=== PATIENT | female | born 1940 | race Caucasian/White ===

== ENCOUNTER 2018-01-28 17:53 | Inpatient (IN) | payer MEDICARE, MEDICAID ==
[~2018-01-28] VITALS: Ht 154.9 cm; Wt 45.8 kg
[~2018-01-28 17:53] MED LIST: ALLO100T PO; COLC0.6T51 PO; GLIP5TAB13 PO; NORCO5 PO; PANT40TA4 PO; SYN75 PO; VALS1TAB40 PO
[2018-01-28 17:58] VITALS: BP_SYST 109
[2018-01-28 18:36] LABS: BASOPHILS % (AUTO) 0.7 % (0.0-2.0); EOSINOPHILS % (AUTO) 0.4 % (0.0-4.0); HEMATOCRIT 22.5 % (36-48); HEMOGLOBIN 7.3 g/dL (12.0-16.0); LYMPHOCYTES # (AUTO) 1.2 K/uL (1.0-5.5); LYMPHOCYTES % (AUTO) 17.3 % (20.5-51.5); MEAN CORPUSCULAR HEMOGLOBIN 28 pg (27-31); MEAN CORPUSCULAR HGB CONC 32 % (32-36); MEAN CORPUSCULAR VOLUME 86 fL (79.0-98.0); MONOCYTES # (AUTO) 0.5 K/uL (0.0-1.0); MONOCYTES % (AUTO) 7.3 % (1.7-9.3); NEUTROPHILS # (AUTO) 5.2 K/uL (1.8-7.7); NEUTROPHILS % (AUTO) 74.3 % (40.0-70.0); PLATELET COUNT (AUTO) 209 K/uL (130-430); RED BLOOD CELL COUNT(AUTO) 2.61 MIL/uL (4.2-6.2); RED CELL DISTRIBUTION WIDTH 16.6 % (9.0-15.0); WHITE BLOOD COUNT (AUTO) 6.9 K/uL (4.8-10.8)
[2018-01-28 18:50] LABS: ANION GAP 9 (5-15); CALCIUM 8.5 mg/dL (8.4-11.0); CHLORIDE 103 mmol/L (98-107); CREATININE 0.78 mg/dL (0.55-1.30); GLUCOSE 117 mg/dL (70-99); POTASSIUM 4.2 mmol/L (3.5-5.1); SODIUM SERUM 134 mmol/L (136-145); UREA NITROGEN, BLOOD 14 mg/dL (8-21)
[2018-01-28] MEDS ORDERED: GABA-529 PO (18:53)
[2018-01-28] MEDS ORDERED: LINA5TAB2 PO (18:53)
[2018-01-28] MEDS ORDERED: AZEL137S7 (18:53)
[2018-01-28] MEDS ORDERED: CILO100T PO (18:53)
[2018-01-28] MEDS ORDERED: LEVO75TA7 PO (18:53)
[2018-01-28] MEDS ORDERED: GLIM4TAB PO (18:53)
[2018-01-28] MEDS ORDERED: ALPR0.25 PO (18:53)
[2018-01-28] MEDS ORDERED: TRIA15CR3 TP (18:53)
[2018-01-28] MEDS ORDERED: LOSA50TA3 PO (18:53)
[2018-01-28] MEDS ORDERED: LIPA1CAP23 PO (18:53)
[2018-01-28] MEDS ORDERED: FER300L PO (18:53)
[2018-01-28] MEDS ORDERED: ASPI-1155 PO (18:53)
[2018-01-28] MEDS ORDERED: CLOP75TA32 PO (18:53)
[2018-01-28] MEDS ORDERED: ERGO500020 PO (18:53)
[2018-01-28] MEDS ORDERED: FOLI-43 PO (18:53)
[2018-01-28] MEDS ORDERED: FAMO40TA7 PO (18:53)
[2018-01-28 18:55] LABS: ALANINE AMINOTRANSFERASE 38 U/L (12-78); ALBUMIN 2.7 g/dL (3.4-4.8); ASPARTATE AMINOTRANSFERASE 29 U/L (10-37); TOTAL BILIRUBIN 0.3 mg/dL (0.0-1.0)
[2018-01-28 20:50] VITALS: BP_SYST 122
[2018-01-28 23:56] VITALS: BP_SYST 110
[2018-01-29 02:55] VITALS: BP_SYST 102
[2018-01-29] MEDS ORDERED: DEXTROSE 50% JECT 50 ML DISP.SYRIN IVP PRN (07:30)
[2018-01-29 07:45] VITALS: BP_SYST 128
[2018-01-29] MEDS ORDERED: LEVOTHYROXINE SODIUM 0.075 MG TABLET PO ONE (08:00)
[2018-01-29 08:50] LABS: BASOPHILS # (AUTO) 0.1 K/uL (0.0-0.2); BASOPHILS % (AUTO) 1.2 % (0.0-2.0); EOSINOPHILS % (AUTO) 0.6 % (0.0-4.0); HEMATOCRIT 26.1 % (36-48); HEMOGLOBIN 8.4 g/dL (12.0-16.0); LYMPHOCYTES # (AUTO) 0.8 K/uL (1.0-5.5); LYMPHOCYTES % (AUTO) 14.9 % (20.5-51.5); MEAN CORPUSCULAR HEMOGLOBIN 29 pg (27-31); MEAN CORPUSCULAR HGB CONC 32 % (32-36); MEAN CORPUSCULAR VOLUME 89 fL (79.0-98.0); MONOCYTES # (AUTO) 0.5 K/uL (0.0-1.0); MONOCYTES % (AUTO) 8.8 % (1.7-9.3); NEUTROPHILS # (AUTO) 4.1 K/uL (1.8-7.7); NEUTROPHILS % (AUTO) 74.5 % (40.0-70.0); PLATELET COUNT (AUTO) 170 K/uL (130-430); RED BLOOD CELL COUNT(AUTO) 2.94 MIL/uL (4.2-6.2); RED CELL DISTRIBUTION WIDTH 15.4 % (9.0-15.0); WHITE BLOOD COUNT (AUTO) 5.5 K/uL (4.8-10.8)
[2018-01-29 08:55] LABS: ANION GAP 7 (5-15); CALCIUM 7.8 mg/dL (8.4-11.0); CHLORIDE 106 mmol/L (98-107); CREATININE 0.76 mg/dL (0.55-1.30); GLUCOSE 130 mg/dL (70-99); POTASSIUM 4.2 mmol/L (3.5-5.1); SODIUM SERUM 134 mmol/L (136-145); UREA NITROGEN, BLOOD 15 mg/dL (8-21)
[2018-01-29] MEDS ORDERED: VALSARTAN PO SCH (09:00)
[2018-01-29] MEDS ORDERED: [UNRECOGNIZED DRUG - OTHER] PO SCH (09:00)
[2018-01-29] MEDS ORDERED: HYDROCHLOROTHIAZIDE PO SCH (09:00)
[2018-01-29 09:01] LABS: ALANINE AMINOTRANSFERASE 30 U/L (12-78); ALBUMIN 2.3 g/dL (3.4-4.8); ASPARTATE AMINOTRANSFERASE 30 U/L (10-37); TOTAL BILIRUBIN 0.8 mg/dL (0.0-1.0)
[2018-01-29] MEDS: ONDANSETRON HCL 4 MG/2 ML VIAL IVP PRN ×2 (09:20→16:14)
[2018-01-29] MEDS: PANTOPRAZOLE SODIUM 40 MG/VIAL (PROTONIX) IVP SCH ×2 (09:27→21:05)
[2018-01-29] MEDS: HYDROCHLOROTHIAZIDE 12.5 MG CAPSULE (HCTZ) PO SCH (09:28)
[2018-01-29] MEDS: VALSARTAN 160 MG TABLET (DIOVAN) PO SCH (09:28)
[2018-01-29] MEDS: LOSARTAN POTASSIUM 50 MG TABLET (COZAAR) PO SCH (09:29)
[2018-01-29 12:29] VITALS: BP_SYST 105
[2018-01-29 16:27] VITALS: BP_SYST 99
[2018-01-29 19:40] VITALS: BP_SYST 106
[2018-01-30 00:35] VITALS: BP_SYST 118
[2018-01-30 02:10] LABS: TOTAL IRON BIND. CAPACITY 281 ug/dL (250-450)
[2018-01-30 02:19] LABS: THYROID STIMULATING HORMONE 8.17 uIu/mL (0.34-4.82)
[2018-01-30] MEDS: LEVOTHYROXINE SODIUM 0.075 MG TABLET PO SCH (06:00)
[2018-01-30] MEDS ORDERED: SIMETHICONE 40 MG/0.6 ML ML ONE (07:10)
[2018-01-30] MEDS: MIDAZOLAM HCL 5 MG/5 ML VIAL ONE ×2 (08:00→08:04)
[2018-01-30] MEDS: MEPERIDINE HCL/PF 100 MG/ML AMP ONE ×2 (08:02→08:06)
[2018-01-30] MEDS ORDERED: METOCLOPRAMIDE HCL 10 MG/2 ML VIAL IVP ONE (08:30)
[2018-01-30] MEDS: HYDROCHLOROTHIAZIDE 12.5 MG CAPSULE (HCTZ) PO SCH (09:00)
[2018-01-30] MEDS: VALSARTAN 160 MG TABLET (DIOVAN) PO SCH (09:00)
[2018-01-30] MEDS: LOSARTAN POTASSIUM 50 MG TABLET (COZAAR) PO SCH (09:00)
[2018-01-30 09:12] VITALS: BP_SYST 96
[2018-01-30] MEDS: PANTOPRAZOLE SODIUM 40 MG/VIAL (PROTONIX) IVP SCH ×2 (09:29→21:50)
[2018-01-30] MEDS ORDERED: DIATR MEGLU/DIATRIZ SOD 30 ML SOLUTION PO ONE (09:33)
[2018-01-30] MEDS: METOCLOPRAMIDE HCL 10 MG/2 ML VIAL IVP SCH ×2 (11:14→17:32)
[2018-01-30] MEDS ORDERED: IOHEXOL 100 ML IV ONE (12:16)
[2018-01-30 14:39] VITALS: BP_SYST 111
[2018-01-30 16:08] VITALS: BP_SYST 101
[2018-01-30] MEDS ORDERED: LEVOFLOXACIN 500 MG/D5W 100 ML IV ONE (17:00)
[2018-01-30 19:40] VITALS: BP_SYST 95
[2018-01-31 00:25] VITALS: BP_SYST 96
[2018-01-31] MEDS: LEVOTHYROXINE SODIUM 0.075 MG TABLET PO SCH (06:11)
[2018-01-31] MEDS: METOCLOPRAMIDE HCL 10 MG/2 ML VIAL IVP SCH ×3 (06:48→17:06)
[2018-01-31 08:00] VITALS: BP_SYST 110
[2018-01-31 08:17] LABS: FOLATE (FOLIC ACID) >20.0 ng/mL (>3.0)
[2018-01-31] MEDS: LOSARTAN POTASSIUM 50 MG TABLET (COZAAR) PO SCH (09:00)
[2018-01-31 09:25] VITALS: BP_SYST 99
[2018-01-31] MEDS: PANTOPRAZOLE SODIUM 40 MG/VIAL (PROTONIX) IVP SCH ×2 (09:25→20:13)
[2018-01-31 11:17] LABS: FERRITIN 17 ng/mL (15-150)
[2018-01-31 12:02] VITALS: BP_SYST 102
[2018-01-31 16:01] VITALS: BP_SYST 108
[2018-01-31] MEDS: LEVOFLOXACIN 250 MG/D5W 50 ML IV SCH (20:12)
[2018-01-31 20:20] VITALS: BP_SYST 102
[2018-02-01 00:21] VITALS: BP_SYST 115
[2018-02-01] MEDS: LEVOTHYROXINE SODIUM 0.075 MG TABLET PO SCH (06:16)
[2018-02-01] MEDS: METOCLOPRAMIDE HCL 10 MG/2 ML VIAL IVP SCH ×2 (06:16→11:33)
[2018-02-01 07:24] LABS: ALANINE AMINOTRANSFERASE 28 U/L (12-78); ALBUMIN 1.9 g/dL (3.4-4.8); ANION GAP 5 (5-15); ASPARTATE AMINOTRANSFERASE 24 U/L (10-37); CALCIUM 7.9 mg/dL (8.4-11.0); CHLORIDE 104 mmol/L (98-107); CREATININE 0.62 mg/dL (0.55-1.30); GLUCOSE 127 mg/dL (70-99); SODIUM SERUM 134 mmol/L (136-145); TOTAL BILIRUBIN 0.3 mg/dL (0.0-1.0); UREA NITROGEN, BLOOD 8 mg/dL (8-21)
[2018-02-01 08:00] VITALS: BP_SYST 115
[2018-02-01] MEDS: LOSARTAN POTASSIUM 50 MG TABLET (COZAAR) PO SCH (08:36)
[2018-02-01] MEDS: PANTOPRAZOLE SODIUM 40 MG/VIAL (PROTONIX) IVP SCH (08:36)
[2018-02-01] MEDS: INSULIN REGULAR, HUMAN 100 UNITS/ML, 10 ML VIAL (novoLIN R) SUBCUT PRN (11:34)
[2018-02-01 12:00] VITALS: BP_SYST 121
[2018-02-01] MEDS: METOCLOPRAMIDE HCL 10 MG TABLET PO SCH ×2 (12:30→17:09)
[2018-02-01 14:30] LABS: WHITE BLOOD COUNT (AUTO) 5.8 K/uL (4.8-10.8)
[2018-02-01 14:31] LABS: HEMATOCRIT 26.2 % (36-48); HEMOGLOBIN 8.3 g/dL (12.0-16.0); MEAN CORPUSCULAR HEMOGLOBIN 29 pg (27-31); MEAN CORPUSCULAR HGB CONC 32 % (32-36); MEAN CORPUSCULAR VOLUME 90 fL (79.0-98.0); PLATELET COUNT (AUTO) 145 K/uL (130-430); RED BLOOD CELL COUNT(AUTO) 2.92 MIL/uL (4.2-6.2); RED CELL DISTRIBUTION WIDTH 16.4 % (9.0-15.0)
[2018-02-01 14:32] LABS: BASOPHILS % (AUTO) 0.3 % (0.0-2.0); EOSINOPHILS # (AUTO) 0.1 K/uL (0.0-0.4); EOSINOPHILS % (AUTO) 0.9 % (0.0-4.0); LYMPHOCYTES # (AUTO) 0.7 K/uL (1.0-5.5); LYMPHOCYTES % (AUTO) 12.5 % (20.5-51.5); MONOCYTES # (AUTO) 0.7 K/uL (0.0-1.0); NEUTROPHILS # (AUTO) 4.3 K/uL (1.8-7.7); NEUTROPHILS % (AUTO) 74.3 % (40.0-70.0)
[2018-02-01 19:10] VITALS: BP_SYST 128
[2018-02-01] MEDS: PANTOPRAZOLE SODIUM 40 MG TAB PO SCH (21:00)
[2018-02-01] MEDS: LEVOFLOXACIN 250 MG/D5W 50 ML IV SCH (21:01)
[2018-02-02 00:17] VITALS: BP_SYST 123
[2018-02-02] MEDS: LEVOTHYROXINE SODIUM 0.075 MG TABLET PO SCH (06:02)
[2018-02-02] MEDS: METOCLOPRAMIDE HCL 10 MG TABLET PO SCH ×3 (06:06→17:04)
[2018-02-02 07:09] LABS: ANION GAP 5 (5-15); CALCIUM 8.2 mg/dL (8.4-11.0); CHLORIDE 103 mmol/L (98-107); CREATININE 0.67 mg/dL (0.55-1.30); GLUCOSE 131 mg/dL (70-99); SODIUM SERUM 134 mmol/L (136-145); UREA NITROGEN, BLOOD 10 mg/dL (8-21)
[2018-02-02 07:47] LABS: BASOPHILS % (AUTO) 0.6 % (0.0-2.0); EOSINOPHILS # (AUTO) 0.1 K/uL (0.0-0.4); HEMATOCRIT 28.4 % (36-48); HEMOGLOBIN 8.9 g/dL (12.0-16.0); LYMPHOCYTES % (AUTO) 13.9 % (20.5-51.5); MEAN CORPUSCULAR HEMOGLOBIN 28 pg (27-31); MEAN CORPUSCULAR HGB CONC 32 % (32-36); MEAN CORPUSCULAR VOLUME 89 fL (79.0-98.0); MONOCYTES # (AUTO) 0.6 K/uL (0.0-1.0); MONOCYTES % (AUTO) 8.4 % (1.7-9.3); NEUTROPHILS # (AUTO) 5.2 K/uL (1.8-7.7); NEUTROPHILS % (AUTO) 76.1 % (40.0-70.0); PLATELET COUNT (AUTO) 208 K/uL (130-430); RED BLOOD CELL COUNT(AUTO) 3.17 MIL/uL (4.2-6.2); RED CELL DISTRIBUTION WIDTH 15.9 % (9.0-15.0); WHITE BLOOD COUNT (AUTO) 6.9 K/uL (4.8-10.8)
[2018-02-02 08:08] VITALS: BP_SYST 111
[2018-02-02] MEDS: PANTOPRAZOLE SODIUM 40 MG TAB PO SCH ×2 (09:16→20:10)
[2018-02-02] MEDS: LOSARTAN POTASSIUM 50 MG TABLET (COZAAR) PO SCH (09:17)
[2018-02-02] MEDS ORDERED: LIDOCAINE PATCH 5% 1 EA TP ONE (09:45)
[2018-02-02] MEDS: INSULIN REGULAR, HUMAN 100 UNITS/ML, 10 ML VIAL (novoLIN R) SUBCUT PRN (11:22)
[2018-02-02 12:00] VITALS: BP_SYST 118
[2018-02-02 16:00] VITALS: BP_SYST 134
[2018-02-02 19:55] VITALS: BP_SYST 110
[2018-02-02] MEDS: LEVOFLOXACIN 250 MG/D5W 50 ML IV SCH (20:10)
[2018-02-02] MEDS: ONDANSETRON HCL 4 MG/2 ML VIAL IVP PRN (22:45)
[2018-02-03] MEDS ORDERED: ACETAMINOPHEN 325 MG TABLET PO PRN
[2018-02-03] MEDS ORDERED: ACETAMINOPHEN 650 MG/20.3 ML UDC PO PRN
[2018-02-03 00:23] VITALS: BP_SYST 124
[2018-02-03] MEDS: MORPHINE 2 MG/ML INJ. SYRINGE IVP PRN ×4 (00:38→22:59)
[2018-02-03] MEDS: ONDANSETRON HCL 4 MG/2 ML VIAL IVP PRN ×3 (03:35→22:59)
[2018-02-03] MEDS: LEVOTHYROXINE SODIUM 0.075 MG TABLET PO SCH (06:00)
[2018-02-03] MEDS: METOCLOPRAMIDE HCL 10 MG TABLET PO SCH ×2 (06:26→11:30)
[2018-02-03 08:10] VITALS: BP_SYST 127
[2018-02-03] MEDS: LOSARTAN POTASSIUM 50 MG TABLET (COZAAR) PO SCH (08:13)
[2018-02-03] MEDS: PANTOPRAZOLE SODIUM 40 MG TAB PO SCH ×2 (08:14→22:16)
[2018-02-03] MEDS: LIDOCAINE PATCH 5% 1 EA TP SCH (08:46)
[2018-02-03 12:43] VITALS: BP_SYST 113
[2018-02-03] MEDS ORDERED: SIMETHICONE 40 MG/0.6 ML ML ONE (13:17)
[2018-02-03] MEDS ORDERED: MEPERIDINE HCL/PF 100 MG/ML AMP ONE (13:18)
[2018-02-03] MEDS: MIDAZOLAM HCL 5 MG/5 ML VIAL ONE ×2 (13:52→15:57)
[2018-02-03] MEDS ORDERED: GASTROGRAFIN 120 ML ONE (15:04)
[2018-02-03 15:14] VITALS: BP_SYST 112
[2018-02-03 16:00] VITALS: BP_SYST 112
[2018-02-03] MEDS ORDERED: METOCLOPRAMIDE HCL 10 MG TABLET PO SCH (17:00)
[2018-02-03] MEDS: METOCLOPRAMIDE HCL 10 MG/2 ML VIAL IVP SCH ×2 (17:11→23:00)
[2018-02-03 19:48] VITALS: BP_SYST 130
[2018-02-03] MEDS: LEVOFLOXACIN 250 MG/D5W 50 ML IV SCH (22:18)
[2018-02-04] MEDS: METOCLOPRAMIDE HCL 10 MG/2 ML VIAL IVP SCH ×3 (05:54→17:07)
[2018-02-04] MEDS: LEVOTHYROXINE SODIUM 0.075 MG TABLET PO SCH (05:54)
[2018-02-04] MEDS: ONDANSETRON HCL 4 MG/2 ML VIAL IVP PRN ×3 (06:34→20:44)
[2018-02-04] MEDS: MORPHINE 2 MG/ML INJ. SYRINGE IVP PRN (06:35)
[2018-02-04 08:00] VITALS: BP_SYST 116
[2018-02-04 08:18] LABS: BASOPHILS % (AUTO) 0.4 % (0.0-2.0); EOSINOPHILS % (AUTO) 0.7 % (0.0-4.0); HEMATOCRIT 26.8 % (36-48); HEMOGLOBIN 8.5 g/dL (12.0-16.0); LYMPHOCYTES # (AUTO) 0.5 K/uL (1.0-5.5); LYMPHOCYTES % (AUTO) 9.3 % (20.5-51.5); MEAN CORPUSCULAR HEMOGLOBIN 29 pg (27-31); MEAN CORPUSCULAR HGB CONC 32 % (32-36); MEAN CORPUSCULAR VOLUME 90 fL (79.0-98.0); MONOCYTES # (AUTO) 0.5 K/uL (0.0-1.0); MONOCYTES % (AUTO) 8.1 % (1.7-9.3); NEUTROPHILS # (AUTO) 4.8 K/uL (1.8-7.7); NEUTROPHILS % (AUTO) 81.5 % (40.0-70.0); PLATELET COUNT (AUTO) 184 K/uL (130-430); RED BLOOD CELL COUNT(AUTO) 2.99 MIL/uL (4.2-6.2); RED CELL DISTRIBUTION WIDTH 16.7 % (9.0-15.0); WHITE BLOOD COUNT (AUTO) 5.8 K/uL (4.8-10.8)
[2018-02-04 08:19] LABS: ALANINE AMINOTRANSFERASE 42 U/L (12-78); ALBUMIN 2.3 g/dL (3.4-4.8); ANION GAP 3 (5-15); ASPARTATE AMINOTRANSFERASE 51 U/L (10-37); CALCIUM 8.4 mg/dL (8.4-11.0); CHLORIDE 106 mmol/L (98-107); CREATININE 0.69 mg/dL (0.55-1.30); GLUCOSE 101 mg/dL (70-99); SODIUM SERUM 136 mmol/L (136-145); TOTAL BILIRUBIN 0.4 mg/dL (0.0-1.0); UREA NITROGEN, BLOOD 10 mg/dL (8-21)
[2018-02-04] MEDS: PANTOPRAZOLE SODIUM 40 MG TAB PO SCH ×2 (08:29→20:24)
[2018-02-04] MEDS: LOSARTAN POTASSIUM 50 MG TABLET (COZAAR) PO SCH (08:30)
[2018-02-04] MEDS: LIDOCAINE PATCH 5% 1 EA TP SCH (08:30)
[2018-02-04] MEDS: INSULIN REGULAR, HUMAN 100 UNITS/ML, 10 ML VIAL (novoLIN R) SUBCUT PRN (11:42)
[2018-02-04 12:48] VITALS: BP_SYST 112
[2018-02-04 16:15] VITALS: BP_SYST 118
[2018-02-04 19:45] VITALS: BP_SYST 108
[2018-02-04] MEDS: LEVOFLOXACIN 250 MG/D5W 50 ML IV SCH (20:24)
== END 2018-02-04 21:00 | disposition home or self-care (01) | DRG 178 ==
LOC: SED 17:53 → STU 20:12 → SMU 01-30 10:04
PROVIDERS: ADMIT Internal Medicine Hospice and Palliative Medicine; ATTEND Internal Medicine Hospice and Palliative Medicine
PROC: 30233N1 Transfusion of Nonautologous Red Blood Cells into Peripheral Vein, Percutaneous Approach (ICD-10-PCS; 2018-01-29)
PROC: 0DBA8ZX Excision of Jejunum, Via Natural or Artificial Opening Endoscopic, Diagnostic (ICD-10-PCS; principal; 2018-01-30 08:00)
PROC: 0D758ZZ Dilation of Esophagus, Via Natural or Artificial Opening Endoscopic (ICD-10-PCS; 2018-02-03)
DX: J69.0 Pneumonitis due to inhalation of food and vomit (principal); K56.7 Ileus, unspecified; Z68.1 Body mass index [BMI] 19.9 or less, adult; E44.0 Moderate protein-calorie malnutrition; E11.43 Type 2 diabetes mellitus with diabetic autonomic (poly)neuropathy; I10 Essential (primary) hypertension; K21.9 Gastro-esophageal reflux disease without esophagitis; E86.0 Dehydration; D64.9 Anemia, unspecified; J44.9 Chronic obstructive pulmonary disease, unspecified; K31.84 Gastroparesis; R13.10 Dysphagia, unspecified; K63.89 Other specified diseases of intestine; Z85.07 Personal history of malignant neoplasm of pancreas; Z87.891 Personal history of nicotine dependence; Z90.411 Acquired partial absence of pancreas; Z90.710 Acquired absence of both cervix and uterus; Z79.82 Long term (current) use of aspirin; Z79.899 Other long term (current) drug therapy; Z92.21 Personal history of antineoplastic chemotherapy
CPT/HCPCS: 36415; 43239; 71045; 71260-TC; 74245-TC; 80048; 80053; 82272; 82378; 82607; 82728; 82746; 82962; 83540-TC; 83550-TC; 83615-TC; 84443-TC; 85025; 86886; 86900; 86901; 86920; 88305; 88313; 92610-GN; 97110-GP; 97116-GP; 97530-GP; 99285; C9113; J1815; J1956; J2175; J2250; J2270; J2405; J2765; J7050; J8597; P9021; Q9963; Q9964; Q9967

== ENCOUNTER 2018-03-13 13:45 | Inpatient (IN) | payer MEDICARE, MEDICAID ==
[2018-03-13] VITALS (9 sets, daily range): BP systolic 76–120
[~2018-03-13] VITALS: Ht 154.9 cm; Wt 44.0 kg
[~2018-03-13 13:45] MED LIST changes: +ALPR0.25 PO; +ASPI-1155 PO; +AZEL137S7; +CILO100T PO; +CLOP75TA32 PO; +ERGO500020 PO; +FAMO40TA7 PO; +FER300L PO; +FOLI-43 PO; +GABA-529 PO; +GLIM4TAB PO; +LEVO75TA7 PO; +LINA5TAB2 PO; +LIPA1CAP23 PO; +LOSA50TA3 PO; +TRIA15CR3 TP
--- NOTE | 2018-03-13 13:50 | NUR ---
Pt placed in bed 7
--- NOTE | 2018-03-13 13:55 | NUR ---
Pt moved to bed 1
--- NOTE | 2018-03-13 13:59 | NUR ---
ER at bedside examining patient.
--- NOTE | 2018-03-13 14:00 | NUR ---
Patient and family came in, c/c of generalized weakness and appetite change. Patient was previously admitted in January for GI bleed and Anemia. Patient completed follow up eval with Dr. Merrill after. Patient alert to verbal stimuli, lethargic and patient is jaundiced. Upon vital signs, patient hypotensive, no tachycardia present. EKG completed at bedside, IV placed, and IV fluid to be given. MD at bedside, will follow up regarding orders.
--- NOTE | 2018-03-13 14:08 | NUR ---
Medication reconciliation completed with information provided by pt's [id number]. Any prior medication reconciliation on file was reviewed and corrected.
--- NOTE | 2018-03-13 14:09 | NUR ---
Patient IV bolus started, blood pressure low at 68/39. MD aware.
[2018-03-13] MEDS ORDERED: NACL 0.9% 1,000 ML IV ONE ×3 (14:15→15:45)
--- NOTE | 2018-03-13 14:15 | NUR ---
Patient went to radiology for exam.
--- NOTE | 2018-03-13 14:34 | NUR ---
Patient returned from radiology via stretcher escorted by radiology staff.
[2018-03-13 14:35] LABS: HEMATOCRIT 28.5 % (36-48); HEMOGLOBIN 8.6 g/dL (12.0-16.0); MEAN CORPUSCULAR HEMOGLOBIN 26 pg (27-31); MEAN CORPUSCULAR HGB CONC 30 % (32-36); MEAN CORPUSCULAR VOLUME 88 fL (79.0-98.0); PLATELET COUNT (AUTO) 197 K/uL (130-430); RED BLOOD CELL COUNT(AUTO) 3.26 MIL/uL (4.2-6.2); RED CELL DISTRIBUTION WIDTH 18.2 % (9.0-15.0); WHITE BLOOD COUNT (AUTO) 13.7 K/uL (4.8-10.8)
[2018-03-13 14:42] LABS: ANION GAP 15 (5-15); CHLORIDE 99 mmol/L (98-107); CREATININE 2.78 mg/dL (0.55-1.30); GLUCOSE 330 mg/dL (70-99); INR 1.1 (0.8-1.2); PROTHROMBIN TIME 11.1 SECS (9.5-12.5); SODIUM SERUM 132 mmol/L (136-145); UREA NITROGEN, BLOOD 42 mg/dL (8-21)
[2018-03-13 14:47] LABS: ALANINE AMINOTRANSFERASE 65 U/L (12-78); ALBUMIN 2.7 g/dL (3.4-4.8); ASPARTATE AMINOTRANSFERASE 51 U/L (10-37); TOTAL BILIRUBIN 0.7 mg/dL (0.0-1.0)
--- NOTE | 2018-03-13 14:50 | NUR ---
# 16 FR Christie catheter with use of sterile technique. Immediate return of 50 cc YELLOW urine noted. Bedside drainage bag placed below level of bladder. Urine sample collected and sent to lab. Pt tolerated procedure WELL.
[2018-03-13 15:02] LABS: ALCOHOL, BLOOD < 3 mg/dL (<10)
[2018-03-13 15:05] LABS: BAND % (MANUAL) 2 % (0-6); LYMPHOCYTES % (MANUAL) 8 % (20-46)
[2018-03-13 15:06] LABS: BASOPHILS % (MANUAL) 0 % (0-2); EOSINOPHILS % (MANUAL) 0 % (0-7); MONOCYTES % (MANUAL) 5 % (0-11)
[2018-03-13 15:07] LABS: BILIRUBIN,URINE 2+ (NEGATIVE); BLOOD, URINE 2+ (NEGATIVE); CLARITY/URINE CLOUDY (CLEAR); COLOR,URINE YELLOW (YELLOW); GLUCOSE,URINE NEGATIVE (NEGATIVE); KETONES,URINE TRACE (NEGATIVE); LEUKOCYTE ESTERASE ,URINE 1+ (NEGATIVE); NITRITE, URINE NEGATIVE (NEGATIVE); PH,URINE 5.5 (5.0-8.0); PROTEIN URINE 2+ (NEGATIVE); UROBILINOGEN,URINE 0.2 (0.2-1.0)
[2018-03-13 15:12] LABS: BACTERIA,URINE MODERATE /HPF (None Seen); WBC,URINE >100 /HPF (0-3)
[2018-03-13] MEDS ORDERED: cefTRIAXone 1 GM IVPB PREMIX 50 ML IV ONE (15:45)
[2018-03-13] MEDS ORDERED: NOREPINEPHRINE 4 MG/4 ML VIAL IV ONE (15:58)
[2018-03-13] MEDS ORDERED: ASPIRIN 81 MG TAB.CHEW PO ONE (16:00)
[2018-03-13] MEDS ORDERED: NOREPINEPHRINE BITARTRATE 4 MG in NS 246 ML IV ONE (16:00)
--- NOTE | 2018-03-13 16:12 | NUR ---
Patient started on Levophed at 2mcg/min. Patient blood pressure is 81/50. Patient started on Rocephin for antibiotics. Patient tolerating well. Patient able to take PO aspirin, tolerating small amount of water intake. Will continue to follow up and monitor. Awaiting return call from Dr. Valadez for admission.
[2018-03-13] MEDS ORDERED: COMMUNICATION ORDER XX ONE (16:15)
--- NOTE | 2018-03-13 16:38 | NUR ---
Verified with Medical records of Dr. Valadez's suspension, no longer under suspension. Will notify ER admitting staff.
--- NOTE | 2018-03-13 16:39 | NUR ---
Rechecked blood pressure with Levophed at 2mcg/min, 96/51.
[2018-03-13] MEDS ORDERED: NOREPINEPHRINE BITARTRATE 4 MG in NS 246 ML IV PRN (16:45)
--- NOTE | 2018-03-13 16:49 | NUR ---
Report given to ABHAY Lipscomb. Patient aware of pending transfer and daughter in law at bedside. Patient resting comfortably. Needs are met at this time.
--- NOTE | 2018-03-13 16:52 | NUR ---
Patient admitted under the care of Dr. Valadez, report given to ENGRAVER JEWELRY, patient to be transferred to ICU#5. Patient transferred with portable monitor, escorted by RN and EMT.
--- NOTE | 2018-03-13 16:55 | NUR ---
TO ICU. TRANSPORTED TO ICU 5 VIA PORTABLE CARDIAC MONITORING, LEVOPHED DRIP AT 2 MCG/MIN INTO LEFT ARM, PT ALERT, WITH CONFUSION, ON ROOM AIR, EKG SINUS OMID, LEAL CATHETER WITH SCANTY AMOUNT, SALINE LOCK IN RIGHT A/C IN PLACE.
[2018-03-13] MEDS ORDERED: NACL 0.9% 1,000 ML IV SCH (17:00)
--- NOTE | 2018-03-13 17:14 | NUR ---
Consults paged: Dr. Ornelas, Dr. Hanley, and Dr. Olmos. Spoke with jami Paulino. Waiting for call back.
--- NOTE | 2018-03-13 17:15 | NUR ---
. DR BECKER CAME IN AND EXAMINED PT. TALKED TO PT'S DAUGHTER IN LAW, FELIBERTO.
--- NOTE | 2018-03-13 17:30 | NUR ---
Spoke to Dr Ash about mistake of admitting pt to Dr Valadez when pt has Keys insurance. Dr Ash states "Dr Valadez can keep pt."
--- NOTE | 2018-03-13 17:34 | NUR ---
Spoke to Dr Valadez and informed him Dr Ash said he could keep pt, Dr Valadez states "Dr Ash can keep the pt because pt was admitted under Dr Ash last month. Dr Valadez states will call Dr Ash himself."
--- NOTE | 2018-03-13 17:35 | NUR ---
Dr. Ornelas return call, new orders made and carried out.
[2018-03-13] MEDS ORDERED: NS 500 ML IV ONE (17:45)
[2018-03-13] MEDS ORDERED: ALPRAZolam 0.25 MG TABLET PO PRN (18:00)
--- NOTE | 2018-03-13 18:30 | NUR ---
AUTOMOTIVE PRODUCT ENGINEER. DR IBARRA WENT TO SEE PT. AWARE OF LOW URINE OUTPUT.
[2018-03-13] MEDS: PIPERACILLIN/TAZO 2.25G/DEX-IS 50 ML IV SCH (18:31)
--- NOTE | 2018-03-13 18:53 | NUR ---
PICC. CONSENT GIVEN OVER THE PHONE BY PT'S SON ORALIA.
--- NOTE | 2018-03-13 19:30 | NUR ---
PM ASSESSMENT REPORT RECEIVED FROM KAILEE BLANK. PT IN BED WITH EYES OPEN, RESPONDS TO VERBAL AND TACTILE STIMULI. NO S/S OF ACUTE DISTRESS OR DISCOMFORT NOTED. PT IS ON RA W/ O2 SATS AT 100%. PT HAS A RIGHT AC PERIPHERAL IV 22G RUNNING NS @ 150 ML/HR AND A LEFT FA 22G PERIPHERAL IV W/ LEVOPHED @ 2 MCG/HR. PT HAS A LEAL CATHETER IN PLACE DRAINING TO GRAVITY. BED LOCKED AND IN LOWEST POSITION, CALL LIGHT WITHIN REACH. WILL CONTINUE TO MONITOR. Addendum: 03/13/18 at 2155 by Ld Kumar RN LEVOPHED @ 2 MCG/MIN.
--- NOTE | 2018-03-13 19:35 | NUR ---
MD JAYLEN IBARRA AWARE OF PT'S LOW URINE OUTPUT.
[2018-03-13] MEDS: GABAPENTIN 100 MG CAPSULE PO SCH (20:41)
[2018-03-13] MEDS: PANTOPRAZOLE SODIUM 40 MG/VIAL (PROTONIX) IVP SCH (20:41)
[2018-03-13] MEDS: LACTOBACILLUS RHAMNOSUS GG 1 CAP CAPSULE PO SCH (20:42)
[2018-03-13] MEDS: LIPASE/PROTEASE/AMYLASE 1 CAP PO SCH (20:42)
[2018-03-13] MEDS ORDERED: VANCOMYCIN HCL 1,000 MG in NS 250 ML IV SCH (21:00)
--- NOTE | 2018-03-13 21:00 | NUR ---
PT SON'S ORALIA AT BEDSIDE VISITING. AWARE OF POC.
[2018-03-14] VITALS (24 sets, daily range): BP systolic 75–153
[2018-03-14] MEDS: PIPERACILLIN/TAZO 2.25G/DEX-IS 50 ML IV SCH ×5 (00:08→23:32)
[2018-03-14] MEDS: NACL 0.9% 1,000 ML IV SCH ×3 (02:19→21:21)
--- NOTE | 2018-03-14 03:36 | NUR ---
LEVOPHED DRIP BP WAS LOW SYSTOLIC 70'S, NOTICED NO BLOOD RETURN IN LEVOPHED LEFT FA IV SITE. SWITCHED LEVOPHED DRIP TO RIGHT AC IV SITE AND BP WENT UP TO SYSTOLIC BP 160. WILL CONTINUE TO MONITOR.
--- NOTE | 2018-03-14 04:00 | NUR ---
IV PLACEMENT: tile designer inserted # 22 gauge angiocath to RIGHT FA. Use of asceptic technique. Opsite placed over site. Blood return noted. Flushed with 10 cc of normal saline. No evidence of infiltration noted. Patient tolerated well.
[2018-03-14 04:50] LABS: BASOPHILS # (AUTO) 0.1 K/uL (0.0-0.2); BASOPHILS % (AUTO) 0.7 % (0.0-2.0); EOSINOPHILS % (AUTO) 0.1 % (0.0-4.0); HEMATOCRIT 23.8 % (36-48); HEMOGLOBIN 7.7 g/dL (12.0-16.0); LYMPHOCYTES # (AUTO) 0.2 K/uL (1.0-5.5); LYMPHOCYTES % (AUTO) 1.4 % (20.5-51.5); MEAN CORPUSCULAR HEMOGLOBIN 28 pg (27-31); MEAN CORPUSCULAR HGB CONC 32 % (32-36); MEAN CORPUSCULAR VOLUME 87 fL (79.0-98.0); MONOCYTES # (AUTO) 0.1 K/uL (0.0-1.0); MONOCYTES % (AUTO) 0.3 % (1.7-9.3); NEUTROPHILS # (AUTO) 17.2 K/uL (1.8-7.7); PLATELET COUNT (AUTO) 186 K/uL (130-430); RED BLOOD CELL COUNT(AUTO) 2.73 MIL/uL (4.2-6.2); RED CELL DISTRIBUTION WIDTH 17.9 % (9.0-15.0); WHITE BLOOD COUNT (AUTO) 17.6 K/uL (4.8-10.8)
[2018-03-14 05:01] LABS: ANION GAP 16 (5-15); CALCIUM 7.4 mg/dL (8.4-11.0); CHLORIDE 108 mmol/L (98-107); CREATININE 1.61 mg/dL (0.55-1.30); GLUCOSE 110 mg/dL (70-99); POTASSIUM 3.8 mmol/L (3.5-5.1); SODIUM SERUM 139 mmol/L (136-145); UREA NITROGEN, BLOOD 33 mg/dL (8-21)
[2018-03-14 05:15] LABS: ALANINE AMINOTRANSFERASE 41 U/L (12-78); ALBUMIN 2.1 g/dL (3.4-4.8); AMYLASE 5 U/L (0-100); ASPARTATE AMINOTRANSFERASE 62 U/L (10-37); LIPASE 38 U/L (73-393); THYROID STIMULATING HORMONE 8.09 uIu/mL (0.36-3.74); TOTAL BILIRUBIN 0.8 mg/dL (0.0-1.0)
[2018-03-14 06:13] LABS: NEUTROPHILS % (AUTO) 97.5 % (40.0-70.0)
[2018-03-14] MEDS: LEVOTHYROXINE SODIUM 0.075 MG TABLET PO SCH (06:18)
--- NOTE | 2018-03-14 07:15 | NUR ---
ENDORSEMENT PT ENDORSED TO SAURABH BLANK USING SBAR FORMAT. NO SIGNS OF ACUTE DISTRESS OR DISCOMFORT NOTED.
--- NOTE | 2018-03-14 07:20 | NUR ---
RECEIVED REPORT FROM ROYER BLANK. PT IN BED WITH EYES CLOSED, RESPONDS TO VERBAL STIMULATION. PT ALERT TO PERSON AND PLACE ONLY. SR ON MONITOR. O2 SAT 97% ON ROOM AIR, UNLABORED RESPIRATIONS. LEAL DRAINING URINE TO GRAVITY. 22G RAC IV WITH NS INFUSING AT 150ML/HR, NO SIGNS INFILTRATION. 22G RFA IV WITH LEVOPHED INFUSING AT 6MCG/MIN, NO SIGNS INFILTRATION. BED LOCKED AND IN LOWEST POSITION, CALL LIGHT IN REACH. WILL CONTINUE TO MONITOR.
[2018-03-14] MEDS: FOLIC ACID 1 MG TABLET PO SCH (08:08)
[2018-03-14] MEDS: GABAPENTIN 100 MG CAPSULE PO SCH ×2 (08:08→21:18)
[2018-03-14] MEDS: PANTOPRAZOLE SODIUM 40 MG/VIAL (PROTONIX) IVP SCH ×2 (08:08→21:18)
[2018-03-14] MEDS: LIPASE/PROTEASE/AMYLASE 1 CAP PO SCH ×3 (08:08→21:19)
[2018-03-14] MEDS: LACTOBACILLUS RHAMNOSUS GG 1 CAP CAPSULE PO SCH ×2 (08:08→21:19)
[2018-03-14] MEDS ORDERED: DIATR MEGLU/DIATRIZ SOD 30 ML SOLUTION PO ONE (08:36)
--- NOTE | 2018-03-14 08:54 | NUR ---
CALLED NEW CONSULT FOR DR PAREDES [phone]. SPOKE TO LOGAN.
--- NOTE | 2018-03-14 09:29 | NUR ---
MD ROUNDS DR GRANDE HERE TO EVALUATE PT. MD AWARE PT ON LEVOPHED AT 2MCG/MIN AT THIS TIME. RECEIVED ORDERS FOR 500ML NS BOLUS AND ECHOCARDIOGRAM.
[2018-03-14] MEDS ORDERED: NS 500 ML IV ONE (09:30)
--- NOTE | 2018-03-14 09:45 | NUR ---
Nutrition Update Latrell Scale 15 noted. Pt admitted for septic shock. Diet: mechanical soft BMI: 18.3 kg/m2 RD to follow per nutrition care standards.
--- NOTE | 2018-03-14 09:45 | NUR ---
ECHO BEING DONE AT BEDSIDE.
--- NOTE | 2018-03-14 11:00 | NUR ---
PT BACK FROM CT. VITALS STABLE. CHG BATH GIVEN, LINEN/GOWN CHANGED. PT TOLERATED WELL.
--- NOTE | 2018-03-14 12:41 | NUR ---
MD ROUNDS DR ANTONIO HERE TO EVALUATE PT. AWARE OF URINE OUTPUT. RECEIVED ORDERS TO DECREASE IVF TO 75ML/HR.
--- NOTE | 2018-03-14 12:46 | NUR ---
PICC INFORMED CONSENT SIGNED. TIME OUT COMPLETE. PICC RN PLACED MARIA PICC LINE, PT TOLERATED WELL, VSS, NO SIGNS DISTRESS. CXR COMPLETE FOR PLACEMENT VERIFICATION, OKAY TO USE ORDER RECEIVED BY PICC RN.
--- NOTE | 2018-03-14 12:48 | NUR ---
MD ROUNDS DR YEPEZ HERE TO EVALUATE PT. AWARE OF INCREASE IN WBC. RECEIVED ORDERS FOR DIFLUCAN.
[2018-03-14] MEDS ORDERED: FLUCONAZOLE 200 mg/ NS 100 ML IV ONE (13:00)
--- NOTE | 2018-03-14 13:10 | NUR ---
Dietitian Recommendations * Recommend mechanical soft diet, Ensure Enlive TID (oral supplement provides an additional 1050 kcal/day and 60 gm protein/day) LP, RD Please refer to Nutrition Assessment for details.
[2018-03-14] MEDS ORDERED: INSULIN REGULAR, HUMAN 100 UNITS/ML, 10 ML VIAL (novoLIN R) SUBCUT PRN (15:00)
[2018-03-14] MEDS ORDERED: DEXTROSE 50%-WATER 50 ML DISP.SYRIN IVP PRN ×2 (15:15)
[2018-03-14] MEDS ORDERED: GLUCOSE 15 GM GEL (in 37.5 GM TUBE) PO PRN ×2 (15:15)
--- NOTE | 2018-03-14 16:40 | NUR ---
FINGERSTICK GLUCOSE 63, 15G GLUCOSE GIVEN PER ORDERS FOR GLUCOSE UNDER 70. WILL RECHECK IN 15MIN.
--- NOTE | 2018-03-14 16:55 | NUR ---
RECHECK FINGERSTICK GLUCOSE 55. DEXTROSE 50% IVP GIVEN PER ORDERS FOR GLUCOSE UNDER 70. WILL RECHECK IN 15MIN.
--- NOTE | 2018-03-14 17:16 | NUR ---
RECHECK FINGERSTICK GLUCOSE 138.
--- NOTE | 2018-03-14 19:20 | NUR ---
OPENING NOTE Patient and report received from day shift nurse. Pt. appears to be resting in bed with eyes closed. Breathing even and unlabored. Visible chest rise and fall. No s/s fo acute distress. MARIA PICC infusing NS at 75mls/hr. IV site to right f/a 22g and right a/c 22g is dry intact and saline locked. Christie catheter is intact, secured, and draining yellow urine by gravity. Safety and fall precautions are in place. Call light with patient. Will continue with plan of care.
[2018-03-14] MEDS: METOCLOPRAMIDE HCL 10 MG/2 ML VIAL IVP SCH (21:20)
--- NOTE | 2018-03-14 21:20 | NUR ---
DUE MEDS Due meds administered as ordered. Educated pt. regarding medication and potential side effects. Verbalized understanding. SonGuillermo at bedside. Will continue with plan of care.
--- NOTE | 2018-03-14 22:00 | NUR ---
ORALIA (SON) AT BEDSIDE Patient's son, Oralia, at bedside with no concerns at this time.
--- NOTE | 2018-03-14 23:32 | NUR ---
ZOSYN Due zosyn administered as ordered. Educated pt. regarding medication and potential side effects. Verbalized understanding.
[2018-03-15] VITALS (24 sets, daily range): BP systolic 93–139
[2018-03-15] MEDS: NACL 0.9% 1,000 ML IV SCH ×2 (03:14→21:04)
--- NOTE | 2018-03-15 03:42 | NUR ---
BLADDER SCANNER Bladder scanner showed patient had 151mls of volume. Repositioned patient. Tolerated well. Christie catheter is intact and draining well with no leakage noted.
[2018-03-15 06:19] LABS: ANION GAP 12 (5-15); CALCIUM 7.3 mg/dL (8.4-11.0); CHLORIDE 109 mmol/L (98-107); GLUCOSE 63 mg/dL (70-99); SODIUM SERUM 138 mmol/L (136-145); UREA NITROGEN, BLOOD 22 mg/dL (8-21)
[2018-03-15] MEDS: LEVOTHYROXINE SODIUM 0.075 MG TABLET PO SCH (06:21)
[2018-03-15] MEDS: PIPERACILLIN/TAZO 2.25G/DEX-IS 50 ML IV SCH ×3 (06:21→17:40)
[2018-03-15] MEDS: METOCLOPRAMIDE HCL 10 MG/2 ML VIAL IVP SCH ×3 (06:21→21:05)
[2018-03-15 06:23] LABS: MEAN CORPUSCULAR HEMOGLOBIN 27 pg (27-31); MEAN CORPUSCULAR HGB CONC 32 % (32-36); MEAN CORPUSCULAR VOLUME 87 fL (79.0-98.0); PLATELET COUNT (AUTO) 66 K/uL (130-430); RED BLOOD CELL COUNT(AUTO) 2.53 MIL/uL (4.2-6.2); RED CELL DISTRIBUTION WIDTH 18.3 % (9.0-15.0); WHITE BLOOD COUNT (AUTO) 4.3 K/uL (4.8-10.8)
[2018-03-15 06:26] LABS: HEMATOCRIT 21.9 % (36-48); HEMOGLOBIN 6.9 g/dL (12.0-16.0)
[2018-03-15 06:28] LABS: ALANINE AMINOTRANSFERASE 53 U/L (12-78); ALBUMIN 1.6 g/dL (3.4-4.8); ASPARTATE AMINOTRANSFERASE 74 U/L (10-37); TOTAL BILIRUBIN 0.7 mg/dL (0.0-1.0)
--- NOTE | 2018-03-15 06:50 | NUR ---
PAGING DR. BECKER TO REPORT CRITICAL HEMOGLOBIN/HEMATOCRIT Paging Dr. Becker to report critical hemoglobin/hematocrit. Will wait for MD to call back.
--- NOTE | 2018-03-15 07:03 | NUR ---
REPORTED CRITICAL HGB/HCT TO DR. ROSITA Valadez was made aware of patient's hemoglobin of 6.9 and hematocrit 21.9. No new orders received. Day shift nurses also aware.
[2018-03-15 07:17] LABS: BASOPHILS % (MANUAL) 0 % (0-2); EOSINOPHILS % (MANUAL) 0 % (0-7); LYMPHOCYTES % (MANUAL) 14 % (20-46); MONOCYTES % (MANUAL) 3 % (0-11)
--- NOTE | 2018-03-15 07:29 | NUR ---
CLOSING NOTE All needs met throughout shift. Safety and fall precautions maintained. Care and report was endorsed to day shift nurse.
--- NOTE | 2018-03-15 07:50 | NUR ---
AM ASSESSMENT. PT AFEBRILE, OPENS HER EYES WHEN ASKED TO DO, GENERALIZED WEAKNESS, IVF INFUSING NS AT 75 ML PER HR INTO PICC PORT, DENIES BODY DISCOMFORT, LEAL CATHETER INTACT, DRAINING WELL.
[2018-03-15] MEDS: PANTOPRAZOLE SODIUM 40 MG/VIAL (PROTONIX) IVP SCH ×2 (09:14→21:05)
[2018-03-15] MEDS: LACTOBACILLUS RHAMNOSUS GG 1 CAP CAPSULE PO SCH ×2 (09:14→21:05)
[2018-03-15] MEDS: FLUCONAZOLE 200 mg/ NS 100 ML IV SCH (09:15)
[2018-03-15] MEDS: GABAPENTIN 100 MG CAPSULE PO SCH ×2 (09:15→21:05)
[2018-03-15] MEDS: LIPASE/PROTEASE/AMYLASE 1 CAP PO SCH ×3 (09:15→21:05)
[2018-03-15] MEDS: FOLIC ACID 1 MG TABLET PO SCH (09:15)
--- NOTE | 2018-03-15 09:15 | NUR ---
DIET. BROUGHT HER TRAY EARLIER AND SHE HAS NOT BEGUN TO EAT. SUPERVISED PT AT BREAKFAST, WITH LITTLE APPETITE, TOOK LITTLE PIECES OF [place] TOAST, SCRAMBLED EGGS, CREAM OF WHEAT.
--- NOTE | 2018-03-15 10:10 | NUR ---
NURSING. OFFERED PT MORE FOOD, ONLY HAD SIPPED ORANGE JUICE.
[2018-03-15] MEDS ORDERED: POTASSIUM CHLORIDE 20 MEQ/PKT PACKET PO ONE (10:15)
--- NOTE | 2018-03-15 11:00 | NUR ---
. DR BECKER CAME IN AND EXAMINED PT.
--- NOTE | 2018-03-15 11:20 | NUR ---
BLOOD SUGAR. CHECKED 69 MG/DL, ANOTHER CUP OF ORANGE JUICE GIVEN AND PT SIPPED WITHOUT HESITATION.
--- NOTE | 2018-03-15 12:51 | NUR ---
CONSULT PAGED DR KELLOGG FOR ONCOLOGY CONSULT. SPOKE WITH RAMSEY. DR KELLOGG IS ON TODAY AND WILL RETURN OUR CALL.
--- NOTE | 2018-03-15 14:05 | NUR ---
BT INITIATION: Consent signed per son Guillermo agreeing to administration of blood. Blood has been typed and crossmatched. Blood sent from blood bank. Information on unit of blood checked against patient wristband at bedside by two nurses. All information matches. Patient or responsible green party informed of potential complications associated with blood transfusion. Informed of possible transfusion reaction symptoms. Aware of need to notify nurse at once of itching, shortness of breath, flushing, feeling of impending doom, or other symptoms not previously present. Vital signs taken within 5 minutes prior to initiation of transfusion. RN will remain with patient for first 15 minutes of transfusion at which time vital signs will be re-assessed.
--- NOTE | 2018-03-15 16:50 | NUR ---
BT TRANSFUSION COMPLETED WITHOUT PROBLEMS, AFEBRILE, CONTINUE TO MONITOR.
--- NOTE | 2018-03-15 17:10 | NUR ---
2ND UNIT PRBC. HUNG BLOOD, VERIFIED BY ANOTHER RN, VITAL SIGNS MONITORED AND RECORDED.
--- NOTE | 2018-03-15 17:30 | NUR ---
BORDER MEASURER AND CUTTER. DR KELLOGG CAME IN AND EXAMINED PT.
--- NOTE | 2018-03-15 19:00 | NUR ---
REPORT. GIVEN TO HULL MOLDER NURSE. TRANSFUSION CONTINUES.
--- NOTE | 2018-03-15 19:30 | NUR ---
Initial Notes Received patient resting in bed, awake, alert, family at bedside. Patient denies any acute distress or pain at this time. Breathing is even and unlabored on 2L NC. PICC site patent/clean/dry. Blood transfusion completed, no adverse reaction noted/reported. Christie draining to gravity. Repositioned patient for comfort. Needs addressed. Educated patient and family regarding use of call light for assistance and fall precautions, verbalized understanding. Will continue to monitor.
[2018-03-15] MEDS: POTASSIUM CHLORIDE 20 MEQ/PKT PACKET PO SCH (21:05)
--- NOTE | 2018-03-15 22:15 | NUR ---
Nursing Notes Patient resting in bed with eyes closed, easily aroused upon nurse entering room. Patient denies any acute distress or pain at this time. Breathing is even and unlabored. IV site patent/clean/dry. Skin care and pericare provided. Repositioned patient for comfort. Needs addressed. Fall precautions in place, will continue to monitor.
[2018-03-16] VITALS (16 sets, daily range): BP systolic 128–163
--- NOTE | 2018-03-16 | NUR ---
Nursing Notes/BM Patient resting in bed with eyes closed, easily aroused, slight disorientation noted. Reoriented patient to surroundings. Patient denies any acute distress or pain at this time. Breathing is even and unlabored. IV access patent/clean/dry. Christie draining to gravity. Patient had moderate sized soft BM, incontinence care provided. Skin care, pericare, and linen change provided. Call light in hand, will continue to monitor.
[2018-03-16] MEDS: PIPERACILLIN/TAZO 2.25G/DEX-IS 50 ML IV SCH ×5 (00:12→23:23)
--- NOTE | 2018-03-16 04:00 | NUR ---
Nursing Notes / BM Patient resting in bed, awake watching TV. Patient denies any acute distress or pain at this time. Breathing is even and unlabored. IV site patent/clean/dry. Patient had 2nd BM this shift, moderate, soft, brown, incontinence care and linen change provided. Needs addressed.
[2018-03-16] MEDS: METOCLOPRAMIDE HCL 10 MG/2 ML VIAL IVP SCH ×3 (06:17→21:19)
[2018-03-16] MEDS: LEVOTHYROXINE SODIUM 0.075 MG TABLET PO SCH (06:17)
--- NOTE | 2018-03-16 06:48 | NUR ---
Closing Notes Patient resting in bed with eyes closed, easily aroused. Patient denies any acute distress or pain at this time. Breathing is even and unlabored. IV site patent/clean/dry, no S/S infection/infiltration noted. Christie draining yellow urine to gravity. Needs addressed throughout shift. Call light in hand, fall precautions in place. Will continue to monitor for changes and safety, and endorse all patient care/needs to oncoming nurse.
[2018-03-16 07:03] LABS: BASOPHILS % (AUTO) 0.5 % (0.0-2.0); EOSINOPHILS % (AUTO) 0.4 % (0.0-4.0); HEMATOCRIT 35.7 % (36-48); HEMOGLOBIN 11.6 g/dL (12.0-16.0); LYMPHOCYTES # (AUTO) 0.5 K/uL (1.0-5.5); LYMPHOCYTES % (AUTO) 9.2 % (20.5-51.5); MEAN CORPUSCULAR HEMOGLOBIN 28 pg (27-31); MEAN CORPUSCULAR HGB CONC 33 % (32-36); MEAN CORPUSCULAR VOLUME 86 fL (79.0-98.0); MONOCYTES # (AUTO) 0.4 K/uL (0.0-1.0); MONOCYTES % (AUTO) 6.7 % (1.7-9.3); NEUTROPHILS # (AUTO) 4.7 K/uL (1.8-7.7); NEUTROPHILS % (AUTO) 83.2 % (40.0-70.0); PLATELET COUNT (AUTO) 67 K/uL (130-430); RED BLOOD CELL COUNT(AUTO) 4.15 MIL/uL (4.2-6.2); RED CELL DISTRIBUTION WIDTH 17.2 % (9.0-15.0); WHITE BLOOD COUNT (AUTO) 5.6 K/uL (4.8-10.8)
--- NOTE | 2018-03-16 07:25 | NUR ---
AM ASSESSMENT Pt received laying in bed with eyes closed. Pt is easily awaken to verbal stimuli. Pt rise and fall of chest is symmetrical with oxygen saturation 100% on in room monitor. Right upper arm PICC clean dry and intact, infusing NS @ 75 cc/hr. Pt connected to Christie cath draining yellow urine to gravity. Reoriented pt to call light. Bed in lowest position. Will continue to monitor.
[2018-03-16 08:14] LABS: ALBUMIN 1.9 g/dL (3.4-4.8); ANION GAP 12 (5-15); ASPARTATE AMINOTRANSFERASE 60 U/L (10-37); CALCIUM 7.7 mg/dL (8.4-11.0); CHLORIDE 107 mmol/L (98-107); CREATININE 0.86 mg/dL (0.55-1.30); GLUCOSE 102 mg/dL (70-99); POTASSIUM 3.9 mmol/L (3.5-5.1); SODIUM SERUM 137 mmol/L (136-145); UREA NITROGEN, BLOOD 16 mg/dL (8-21)
[2018-03-16] MEDS: FLUCONAZOLE 200 mg/ NS 100 ML IV SCH (09:10)
[2018-03-16] MEDS: NACL 0.9% 1,000 ML IV SCH (09:10)
[2018-03-16] MEDS: GABAPENTIN 100 MG CAPSULE PO SCH ×2 (09:11→21:01)
[2018-03-16] MEDS: POTASSIUM CHLORIDE 20 MEQ/PKT PACKET PO SCH ×2 (09:11→21:02)
[2018-03-16] MEDS: LIPASE/PROTEASE/AMYLASE 1 CAP PO SCH ×3 (09:11→21:02)
[2018-03-16] MEDS: PANTOPRAZOLE SODIUM 40 MG/VIAL (PROTONIX) IVP SCH ×2 (09:11→21:01)
[2018-03-16] MEDS: LACTOBACILLUS RHAMNOSUS GG 1 CAP CAPSULE PO SCH ×2 (09:11→21:02)
[2018-03-16] MEDS: FOLIC ACID 1 MG TABLET PO SCH (09:11)
[2018-03-16 09:59] LABS: ALANINE AMINOTRANSFERASE 58 U/L (12-78)
--- NOTE | 2018-03-16 10:35 | NUR ---
MD Dr. Ornelas at bedside with pt.
--- NOTE | 2018-03-16 12:45 | NUR ---
TELEMETRY PT CHANGED TO TELEMETRY STATUS. WILL TRANSFER WHEN BED IS AVAILABLE PER RYAN- TEXTILE TECHNICAL OFFICER
--- NOTE | 2018-03-16 14:16 | NUR ---
MD Dr. Olmos at bedside with pt
--- NOTE | 2018-03-16 17:58 | NUR ---
TRANSFER PATIENT TRANSFERRED FROM ICU. RECEIVED REPORT FROM [facility] ICU. PATIENT IN STABLE CONDITION. PATIENT IS AWAKE AND ALERT, ORIENTED TO ROOM AND NEW NURSE. LEAL CATHETER IN PLACE. BEDSIDE TABLE WITH DINNER. IV IS PATENT AND INFUSING. SCD'S IN PLACE. PATIENT PLACED ON 2 L NASAL CANNULA. CALL LIGHT IN REACH, BED IN LOWEST POSITION, AND WILL CONTINUE TO MONITOR.
--- NOTE | 2018-03-16 17:58 | NUR ---
PT transferred Pt transferred to TELE. Report given to Delilah BLANK. Pt belongings taken with pt. Vital signs stable, connected to transport monitor.
--- NOTE | 2018-03-16 19:30 | NUR ---
CHANGE OF SHIFT; pt. awake, still eating dinner when checked, awake, alert. pt. transferred from ICU this afternoon. IVF infusing via PICC line on rt. upper arm, double lumen cath with NS @ 40 cc/hr. pina cath to OSD. call light given and show how to use it. kept on high fowlers position, O2 @ 2l/nc.
--- NOTE | 2018-03-16 20:45 | NUR ---
NOTES: complete hs care given by JUNAID Shaffer. repositioned and pulled up in bed. kept warm and comfortable. pt. close to nursing station, forgetful and needs to be reoriented all the time. observed for fall precautions. side rails up and bed in low position.
--- NOTE | 2018-03-16 21:10 | NUR ---
NOTES: pt. awakened for meds, tolerated pills, able to swallow. Blood sugar 154 with sliding scale coverage.
--- NOTE | 2018-03-16 23:00 | NUR ---
NOTES: pt. sleeping when checked. bed alarm on. IVF patent.
--- NOTE | 2018-03-17 00:03 | NUR ---
NOTES: pt. awakened when IV antibiotic hung. reoriented, looking for her son.
[2018-03-17 00:26] VITALS: BP_SYST 125
--- NOTE | 2018-03-17 01:22 | NUR ---
NOTES; pt. checked, able to go back to sleep. condition unchanged.
--- NOTE | 2018-03-17 03:02 | NUR ---
NOTES: pt. remain sleeping, continue to monitor. in no acute distress.
--- NOTE | 2018-03-17 04:05 | NUR ---
NOTES: hourly rounds, no changed.
[2018-03-17] MEDS: PIPERACILLIN/TAZO 2.25G/DEX-IS 50 ML IV SCH (05:21)
[2018-03-17] MEDS: NACL 0.9% 1,000 ML IV SCH ×2 (05:25→11:39)
[2018-03-17] MEDS: METOCLOPRAMIDE HCL 10 MG/2 ML VIAL IVP SCH ×2 (05:34→17:57)
--- NOTE | 2018-03-17 06:00 | NUR ---
NOTES: repositioned. keeps taking off her O2. noted with cool hands. kept warm with blanket, pt. does not feel cold. no BM.
[2018-03-17] MEDS: LEVOTHYROXINE SODIUM 0.075 MG TABLET PO SCH (06:15)
--- NOTE | 2018-03-17 06:23 | NUR ---
CLOSING NOTES; pt. awakened and gave her thyroid pill and tolerated well. BS checked , no sliding scale coverage.IV at same rate via PICC line and due IV antibiotic given. pina cath to OSD. frequent reorientation, tends to forget. call light within reach. for further care and assistance.
[2018-03-17 06:32] LABS: MONOCYTES # (AUTO) 0.5 K/uL (0.0-1.0); NEUTROPHILS # (AUTO) 8.6 K/uL (1.8-7.7)
[2018-03-17 06:39] LABS: EOSINOPHILS % (AUTO) 0.3 % (0.0-4.0); HEMATOCRIT 36.7 % (36-48); LYMPHOCYTES # (AUTO) 0.6 K/uL (1.0-5.5); LYMPHOCYTES % (AUTO) 6.4 % (20.5-51.5); MEAN CORPUSCULAR HEMOGLOBIN 28 pg (27-31); MEAN CORPUSCULAR HGB CONC 33 % (32-36); MEAN CORPUSCULAR VOLUME 86 fL (79.0-98.0); MONOCYTES % (AUTO) 5.5 % (1.7-9.3); NEUTROPHILS % (AUTO) 87.8 % (40.0-70.0); PLATELET COUNT (AUTO) 92 K/uL (130-430); RED BLOOD CELL COUNT(AUTO) 4.29 MIL/uL (4.2-6.2); RED CELL DISTRIBUTION WIDTH 17.6 % (9.0-15.0); WHITE BLOOD COUNT (AUTO) 9.7 K/uL (4.8-10.8)
--- NOTE | 2018-03-17 07:15 | NUR ---
endorsed pt. to incoming shift with nurse
[2018-03-17 07:43] LABS: ANION GAP 10 (5-15); CALCIUM 7.8 mg/dL (8.4-11.0); CHLORIDE 107 mmol/L (98-107); CREATININE 0.74 mg/dL (0.55-1.30); GLUCOSE 117 mg/dL (70-99); POTASSIUM 4.6 mmol/L (3.5-5.1); SODIUM SERUM 137 mmol/L (136-145); UREA NITROGEN, BLOOD 12 mg/dL (8-21)
--- NOTE | 2018-03-17 07:53 | NUR ---
initial notes rec patient awake alert with periods of forgetfulness. ivf infusing well on the r upper arm picc line. no infiltration noted. denies pain at this time. bed in low position and side rails up and locked. call light within reached and knows when to call for assistance. pt is closed to the nurses station. will continue to monitor patient.
[2018-03-17] MEDS ORDERED: POTASSIUM CHLORIDE 20 MEQ/PKT PACKET PO SCH (09:00)
[2018-03-17] MEDS: PANTOPRAZOLE SODIUM 40 MG/VIAL (PROTONIX) IVP SCH (09:31)
[2018-03-17] MEDS: FOLIC ACID 1 MG TABLET PO SCH (09:31)
[2018-03-17] MEDS: LACTOBACILLUS RHAMNOSUS GG 1 CAP CAPSULE PO SCH (09:31)
[2018-03-17] MEDS: LIPASE/PROTEASE/AMYLASE 1 CAP PO SCH ×2 (09:31→17:57)
[2018-03-17] MEDS: GABAPENTIN 100 MG CAPSULE PO SCH (09:31)
[2018-03-17] MEDS: FLUCONAZOLE 200 mg/ NS 100 ML IV SCH (09:40)
--- NOTE | 2018-03-17 10:15 | NUR ---
rounds due meds were given and huber well. seen by dr thurston at bedside and with orders.
[2018-03-17] MEDS ORDERED: CEFEPIME 1 GM in D5W 50 ML IV SCH (11:15)
[2018-03-17 11:38] VITALS: BP_SYST 127
--- NOTE | 2018-03-17 12:00 | NUR ---
rounds pt with periods of confusion and reoriented with her surroundings, no acute distress noted. no hypo hyperglycemic reaction noted. no acute distress noted.
--- NOTE | 2018-03-17 13:46 | NUR ---
DC PLANNING Discussed dc plan w Dr Valadez & Dr Meneses in [facility] SNF today for PT & IV abx. Per Dr Meneses, IV Maxipime q12h x7d. Called & discussed w randy Li, agreeable w SNF w preference close to [place], states can call Leonarda also. Informed pt @ bedside about plan for SNF today & agreeable, informed that discussed w son Guillermo. Later in afternoon called & spoke w [facility]arte ph [phone], states no SNF in [place] closest contracted: [facility]. Spoke w dtr in law Leonarda @ bedside & agreeable w SNF w preference for [place], pt again agreeable. francisco Freeman technical planner, aware. Pt's nurse Janessa franco. Addendum: 03/17/18 at 1458 by Monique Pisano RN Per Lydia, accepted to [place]. Spoke w dtr in law Leonarda @ [facility], informed that accepted to [place] room 101A, medicinal plant picker arranged for 5pm. States agreeable, she called & informed pt's son & also agreeable. Pt's nurse Janessa franco.
--- NOTE | 2018-03-17 14:00 | NUR ---
rounds up with p.t at bedside and hardly tolerated standing up. pt had a bm and was keep dry and cleaned. daughter in law at bedside. call light within reached.
--- NOTE | 2018-03-17 14:34 | NUR ---
Discharge Planning: [facility] faxed pt referral to [place] (f [phone] p [phone]); pt was accepted room 101A. [facility] arranged transportation with [email or web address] (p [phone]) apple picking supervisor 5:00pm. Nurse to nurse ([phone]). IDP placed pt packet at nurses station.
--- NOTE | 2018-03-17 14:41 | NUR ---
Nutrition F/U Admitting Diagnosis Septic shock Reviewed Pertinent Medical/Surgical Hx Medical Record Patient Primary RN Medical History Comment: PMH: pancreatic CA, s/p Whipples, gastroparesis, DM, HTN, gout, hypothyroidism per MD notes Pt also found w/ UTI, severe protein malnutrition, ARF per MD notes 03/17/18 MD Progress notes: Generalized debility and FTT, Atrial arrhythmias per MD notes. Subjective Information Pt seen for follow up. Pt reported that she drinks the Ensure and eats fine. Pt seemed confused. +IV infusing. Per MD notes, pt w/ poor appetite. Per RN, pt is confused. Per EMR, abd is soft and non-distended w/ hypoactive bowel sounds. I/O: 840/300 +540ml per 12 hrs. PO intake NEGLIGIBLE 20% x 3 meals. Last BM 03/17/18 x 1. Pt is not yet meeting optimal nutrition w/ current PO intake. Encourage pt to increase oral intake. Current Diet Order/Nutrition Support Mechanical soft w/ Ensure Enlive TID x 3 days Education Provided Not Indicated Pertinent Medications folic acid, pancrease/creon, culturelle, protonix IV, piperacillin/tazobactam, NaCl IV, KCL Packets, reglan, synthroid Pertinent Labs BG 117H, BUN 12 WNL (improved) CRE .74 WNL (improved), ALB 1.9L, ALP 207H, WBC 9.7 WNL (improved) Height (Feet) 5 feet Height (Inches) 1.00 inches Weight (Pounds) 97 pounds Weight (Calculated Kilograms) 43.247220 kilograms Patient Weight 43.998 kg Body Mass Index 18.33 kg/m2 %IBW 92 [place]/Adjusted Body Weight IBW: 105 lb, 48 kg Recent Weight Change Yes - possible 53 lb wt loss within 8 months; 35% severe wt change Weight Status Underweight Gastrointestinal Symptoms None Last BM Mar 17, 2018 x1 Food Allergies No Usual Diet At Home Regular per nursing notes Skin Integrity Comment: Latrell scale: 13; forehead w/ dry scab per nursing notes Current % PO Negligible <25% Estimated Energy Expenditure (kcals/day) 9635-7341 kcal/day (30-35 kcal/kg IBW for wt gain promotion, sepsis, CA) Estimated Protein Required (g/day) 58-72 gm/day (1.2-1.5 gm/kg IBW for wt gain promotion, sepsis, CA) Estimated Fluid Required (l/day) Per MD (ARF) Problem/Etiology/Signs/Symptoms Increased nutritional needs related to metabolic demands and catabolic illness as evidenced by estimated nutritional requirements for sepsis, elevated WBC lab value, and Hx of pancreatic CA. *ongoing Expected Outcomes/Goals - Monitor appetite and PO intakes w/ goal of pt meeting at least 50% of estimated nutritional needs, labs trending WNL, normal GI function, and skin integrity/wt maintenance Dietitian Recommendations * Recommend continuing mechanical soft diet, Ensure Enlive TID (oral supplement provides an additional 1050 kcal/day and 60 gm protein/day) Follow Up High Risk: F/U in 2-3days
--- NOTE | 2018-03-17 14:52 | NUR ---
Dietitian Recommendations * Recommend continuing mechanical soft diet, Ensure Enlive TID (oral supplement provides an additional 1050 kcal/day and 60 gm protein/day) Please see Nutrition F/U note for details. GEOFF, MARY
--- NOTE | 2018-03-17 14:54 | NUR ---
PT EVALUATION HAS BEEN COMPLETED. RECOMMEND SNF PLACEMENT DUE TO PATIENT REQUIRING TOTAL ASSISTANCE WITH HER MOBILITY. DAUGHTER IN LAW WAS PRESENT DURING THE EVALUATION.
[2018-03-17 16:00] VITALS: BP_SYST 117
--- NOTE | 2018-03-17 16:00 | NUR ---
rounds up with pt. and hardly tolerated the ambulation. no sob noted.
[2018-03-17 16:44] VITALS: BP_SYST 117
--- NOTE | 2018-03-17 17:07 | NUR ---
rounds son came to sign the acknowledgement transfer and was asked re flu shot and would like one for the patient. stated that she gets it every year. report also given to bridgette at [place]. awaiting for ambulance to orange picker patient. no sob noted. son at bedside and talking to patient.
--- NOTE | 2018-03-17 18:12 | NUR ---
closing notes pt was picked up by ambulance. flu shot was given and accucheck was done prior to discharge. no hypo hyperglycemic reaction noted. id band was removed and replaced with a paper plastic id band. picc line was flushed on the r upper arm. no osb noted. son with patient .
== END 2018-03-17 18:12 | DRG 871 ==
LOC: SED 13:45 → SIC 16:12 → STU 03-16 17:56
PROVIDERS: ADMIT Internal Medicine; ATTEND Internal Medicine
PROC: 02HV33Z Insertion of Infusion Device into Superior Vena Cava, Percutaneous Approach (ICD-10-PCS; principal; 2018-03-14)
PROC: B548ZZA Ultrasonography of Superior Vena Cava, Guidance (ICD-10-PCS; 2018-03-14)
PROC: 30233N1 Transfusion of Nonautologous Red Blood Cells into Peripheral Vein, Percutaneous Approach (ICD-10-PCS; 2018-03-15)
DX: A41.9 Sepsis, unspecified organism (principal); R65.21 Severe sepsis with septic shock; E43 Unspecified severe protein-calorie malnutrition; I21.A1 Myocardial infarction type 2; J18.1 Lobar pneumonia, unspecified organism; N39.0 Urinary tract infection, site not specified; N17.9 Acute kidney failure, unspecified; E87.1 Hypo-osmolality and hyponatremia; C24.1 Malignant neoplasm of ampulla of Vater; C25.9 Malignant neoplasm of pancreas, unspecified; Z68.1 Body mass index [BMI] 19.9 or less, adult; D61.818 Other pancytopenia; K56.600 Partial intestinal obstruction, unspecified as to cause; E11.65 Type 2 diabetes mellitus with hyperglycemia; E11.51 Type 2 diabetes mellitus with diabetic peripheral angiopathy without gangrene; M10.9 Gout, unspecified; I49.9 Cardiac arrhythmia, unspecified; E87.6 Hypokalemia; B96.89 Other specified bacterial agents as the cause of diseases classified elsewhere; K31.84 Gastroparesis; E11.43 Type 2 diabetes mellitus with diabetic autonomic (poly)neuropathy; E86.0 Dehydration; E03.9 Hypothyroidism, unspecified; R62.7 Adult failure to thrive; R74.8 Abnormal levels of other serum enzymes; I10 Essential (primary) hypertension; Z90.710 Acquired absence of both cervix and uterus; Z90.411 Acquired partial absence of pancreas; Z87.891 Personal history of nicotine dependence; Z79.899 Other long term (current) drug therapy; Z79.82 Long term (current) use of aspirin; Z79.02 Long term (current) use of antithrombotics/antiplatelets
CPT/HCPCS: 36415; 70450-TC; 71045; 80048; 80053; 81000-TC; 82140-TC; 82150-TC; 82533; 82550-TC; 82962; 83010; 83605; 83615-TC; 83690-TC; 83735-TC; 83935-TC; 84100-TC; 84302-TC; 84443-TC; 84484; 85007; 85025; 85027; 85044-TC; 85384-TC; 85610-TC; 85730-TC; 86301; 86886; 86900; 86901; 86920; 87040-TC; 87081; 87086; 87186-TC; 90656; 93306; 96361; 96365; C1751; C9113; G0482; J0692; J0696; J1450; J1815; J2543; J2765; J3370; J7030; J7040; J7050; J7060; P9021; Q9964